=== PATIENT | male | born 1975 | race Caucasian/White ===

== ENCOUNTER 2020-04-20 13:43 | Emergency (ER) | payer BC ==
[2020-04-20] MEDS ORDERED: Lidocaine 1% 30 ML SDV INJECT ONE (14:26)
[2020-04-20] MEDS ORDERED: Bacitracin Oint 1 GM U/D Packet TOP ONE (14:26)
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
== END 2020-04-20 15:10 | disposition home or self-care (01) ==
LOC: DL.ED 13:43
DX: S61.213A Laceration without foreign body of left middle finger without damage to nail, initial encounter (principal); S61.215A Laceration without foreign body of left ring finger without damage to nail, initial encounter; W23.0XXA Caught, crushed, jammed, or pinched between moving objects, initial encounter
CPT/HCPCS: 12001; 73140-LT; 99282; 99283-25

== ENCOUNTER 2020-07-09 16:08 | Emergency (ER) | payer BC ==
[2020-07-09] MEDS ORDERED: Morphine 2 MG/ML SYRINGE IVPUSH ONE (16:21)
[2020-07-09] MEDS ORDERED: Sodium Chloride 0.9% 1,000 ML IV ONE (16:24)
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
[2020-07-09] MEDS ORDERED: HYDROmorphone 1 MG/ML Syringe IVPUSH ONE (16:51)
[2020-07-09] MEDS ORDERED: Silver Sulfadiazine 1% Crm 50 GM Tube TOP ONE (17:56)
== END 2020-07-09 19:07 | disposition home or self-care (01) ==
LOC: DL.ED 16:08
DX: T23.261A Burn of second degree of back of right hand, initial encounter (principal); T23.262A Burn of second degree of back of left hand, initial encounter; T20.20XA Burn of second degree of head, face, and neck, unspecified site, initial encounter; X08.8XXA Exposure to other specified smoke, fire and flames, initial encounter
CPT/HCPCS: 16020; 96374; 96375; 99283-25; A9270-GY; J1170; J2270; J7030

== ENCOUNTER 2021-10-04 06:38 | Day surgery (SDC) | payer BC ==
[2021-10-04] MEDS ORDERED: Glycopyrrolate 0.2 MG/ML 2 ML SDV IV ONE (06:39)
[2021-10-04] MEDS ORDERED: Propofol 200 MG/20 ML SDV IV ONE (06:39)
[2021-10-04] MEDS ORDERED: Lidocaine 1% 5 ML VIAL ONE (06:39)
[2021-10-04] MEDS ORDERED: Sodium Chloride 0.9% 10 ML Syringe FLUSH PRN (07:44)
[2021-10-04] MEDS ORDERED: Dextrose 5%-0.45% NaCl 1,000 ML IV SCH (07:45)
[2021-10-04] MEDS ORDERED: Sodium Chloride 0.9% 10 ML Syringe FLUSH SCH (09:00)
== END 2021-10-04 10:20 | disposition home or self-care (01) ==
LOC: DL.ENDO 06:38
PROVIDERS: ATTEND Internal Medicine Gastroenterology
DX: K57.31 Diverticulosis of large intestine without perforation or abscess with bleeding (principal); K64.8 Other hemorrhoids; F17.210 Nicotine dependence, cigarettes, uncomplicated; F10.20 Alcohol dependence, uncomplicated; E78.00 Pure hypercholesterolemia, unspecified; E66.9 Obesity, unspecified; Z68.31 Body mass index [BMI] 31.0-31.9, adult; Z01.812 Encounter for preprocedural laboratory examination; Z20.822 Contact with and (suspected) exposure to COVID-19
CPT/HCPCS: 00812; J2704; J3490; J7042; U0002